=== PATIENT | female | born 1950 | race Caucasian/White ===

== ENCOUNTER → 2016-05-14 | Outpatient (CLI) | payer OTHER ==
[2016-05-14 12:21] LABS: ALT/SGPT 28 U/L (12-78); BLOOD UREA NITROGEN 15 mg/dl (7-18); BUN/CREATININE RATIO 18.8 (10-20); CALCIUM 8.9 mg/dl (8.5-10.1); CARBON DIOXIDE 32 mmol/L (21-32); CHLORIDE 102 mmol/L (98-107); CREATININE 0.82 mg/dl (0.60-1.20); GLUCOSE 90 mg/dl (70-99); POTASSIUM 4.2 mmol/L (3.5-5.1); SODIUM 138 mmol/L (136-145)
[2016-05-14 12:32] LABS: CHOLESTEROL 219 mg/dl (0-200); CHOLESTEROL/HDL RATIO 2.7; HDL CHOLESTEROL 81 mg/dl; LDL CHOLESTEROL CALCULATED 124 mg/dl; TRIGLYCERIDES 69 mg/dl (0-150); VERY LOW DENSITY LIPOPROT CALC 14 mg/dl
== END | disposition home or self-care (01) ==
LOC: C.LAB1850 10:25
PROVIDERS: ATTEND Family Medicine
DX: E78.5 Hyperlipidemia, unspecified (principal); E03.9 Hypothyroidism, unspecified; Z11.59 Encounter for screening for other viral diseases

== ENCOUNTER → 2016-11-15 | Outpatient (CLI) | payer OTHER | END | disposition home or self-care (01) | LOC: C.PAPS 14:07 | PROVIDERS: ATTEND Physician Assistant | DX: Z12.4 Encounter for screening for malignant neoplasm of cervix (principal); R87.619 Unspecified abnormal cytological findings in specimens from cervix uteri; Z11.51 Encounter for screening for human papillomavirus (HPV); Z78.0 Asymptomatic menopausal state ==

== ENCOUNTER → 2016-12-24 | Outpatient (CLI) | payer OTHER ==
--- NOTE | 2016-12-27 15:02 | MAMMOGRAPHY REPORT ---
BILATERAL DIGITAL SCREENING MAMMOGRAM TOMOSYNTHESIS WITH CAD: 12/24/2016 CLINICAL HISTORY: Routine screening. Patient has no complaints. TECHNIQUE: Breast tomosynthesis in addition to standard 2D mammography was performed. Current study was also evaluated with a Computer Aided Detection (CAD) system. COMPARISON: Comparison is made to exams dated: 01/27/2016 mammogram, 03/14/2014 mammogram - [facility], 11/18/2012 mammogram, 11/16/2011 mammogram, and 10/20/2010 mammogram. BREAST COMPOSITION: There are scattered areas of fibroglandular density in both breasts. FINDINGS: No suspicious masses, calcifications, or areas of architectural distortion are noted in ei ther breast. There has been no significant interval change compared to prior exams. IMPRESSION: ACR BI-RADS CATEGORY 1: NEGATIVE There is no mammographic evidence of malignancy. A 1 year screening mammogram is recommended. The pa tient will receive written notification of the results. Approximately 10% of breast cancers are not detected with mammography. A negative mammographic report should not delay biopsy if a clinically suggestive mass is present. Princess Lopez M.D. /:12/24/2016 15:28:01 Supervisor Cereal: Ninfa WOMACK)([place]), [facility] letter sent: Normal 1/2 BI-RADS Code: ACR BI-RADS Category 1: Negative
== END | disposition home or self-care (01) ==
LOC: C.MAMM 14:11
PROVIDERS: ATTEND Obstetrics & Gynecology
DX: Z12.31 Encounter for screening mammogram for malignant neoplasm of breast (principal)

== ENCOUNTER → 2017-02-01 | Outpatient (CLI) | payer OTHER ==
[2017-02-01 13:40] LABS: BASO % 0.8 %; BASO ABS # 0.04 K/uL (0-0.2); COMPLETE YES; HEMATOCRIT 43.5 % (37-47); IG% 0.2 %; LYMPH % 22.9 %; LYMPH ABS # 1.13 K/uL (1.2-3.4); MEAN CELL VOLUME 98.2 fL (80-100); MEAN CORPUSCULAR HGB CONC 33.6 g/dl (32-36); MEAN PLATELET VOLUME 10.9 fL (7.4-10.4); MONO % 10.5 %; NEUT % 63.6 %; PLATELET COUNT 261 K/uL (130-400); RED BLOOD COUNT 4.43 M/uL (4.2-5.4); WHITE BLOOD COUNT 4.94 K/uL (4.8-10.8)
[2017-02-01 14:01] LABS: CHOLESTEROL/HDL RATIO 3.2; THYROID STIMULATING HORMONE 2.86 uIu/ml (0.300-4.500)
== END | disposition home or self-care (01) ==
LOC: C.LABBC 09:43
PROVIDERS: ATTEND Family Medicine
DX: E78.5 Hyperlipidemia, unspecified (principal); E03.9 Hypothyroidism, unspecified

== ENCOUNTER 2019-11-14 11:04 | Observation (INO) ==
--- NOTE | 2019-11-06 17:15 | Anesthesiology Consultation ---
Date of Service November 06, 2019 Assessment & Plan Chart Review Chart Review: Acceptable Risk for Surgery and Patient NOT seen in Pre Admission Testing Consults Requested none ASA ASA3 Proposed Anesthesia Anesthesia Type: MAC History Surgery Operation Date: 11/14/19 10:10 Proposed Procedures p Colonoscopy Dr. Remigio Flood, Height/Weight Height: 5 ft 3.5 in Weight: 68.039 kg Allergies Allergy/AdvReac Type Severity Reaction Status Date / Time No Known Allergies Allergy Verified 11/06/19 13:30 Medications Home Medications Medication Instructions Recorded Confirmed Last Taken clobetasol 0.05 % topical ointment See Rx Instructions TOPICAL 03/22/19 11/06/19 Unknown .COMPLEX PRN #45 gm conjugated estrogens 0.625 mg/gram 0.3125 mg PV 2XWK #90 gm 03/27/19 11/06/19 Unknown vaginal cream alprazolam 0.25 - 0.5 mg PO DAILY PRN 11/06/19 11/06/19 Unknown levothyroxine 50 mcg PO QAM 11/06/19 11/06/19 Unknown naproxen sodium [Aleve] 440 mg PO BID 11/06/19 11/06/19 Unknown simvastatin 40 mg PO HS 11/06/19 11/06/19 Unknown sodium,potassium,mag sulfates 17.5 177 ml PO .COMPLEX #354 ml 11/06/19 Unknown gram-3.13 gram-1.6 gram oral soln Past Medical History Medical History Anxiety Hyperlipidemia Hypothyroidism Osteoarthritis Exercise / Class Metabolic Activity III < 4 Walking/Shop/Light housework Past Family History Family History Grandmother Breast cancer Father Myocardial infarction Emphysema/COPD Mother Liver cancer Type C viral hepatitis Sister Thyroid disease Ovarian cancer Hemochromatosis Dane-Danlos disease Denies family history of Prostate cancer Colorectal cancer Past Surgical History Surgical History History of partial knee replacement right History of tonsillectomy History of tubal ligation History of wisdom tooth extraction Past Anesthesia History No Hx of Anesthesia Complications and No Family Hx of Anesthesia Complications History of PONV No Hx of PONV and No Hx of Motion Sickness Social History Smoking Status: Never smoker Do You Dip or Chew Tobacco: No Hx Alcohol Use: Yes Alcohol type: wine alcohol intake frequency: holidays/special occasions only Hx Substance Use: No substance use type: does not use
[2019-11-14] MEDS ORDERED: METOPROLOL TARTRATE 1 MG/ML VIAL IV ONE (12:08)
--- NOTE | 2019-11-14 12:20 | History & Physical Report ---
Date of Service November 14, 2019 Assessment & Plan (1) Colon cancer screening: Proceed with colonoscopy History of Present Illness Chief Complaint: Screening Primary Care Provider: Christina Ozuna MD 69 yo CF who presents for screening colonoscopy. Allergies Allergy/AdvReac Type Severity Reaction Status Date / Time No Known Allergies Allergy Verified 11/14/19 11:15 Home Medications Home Medications Medication Instructions Recorded Confirmed Type clobetasol 0.05 % topical ointment See Rx Instructions TOPICAL 03/22/19 11/14/19 Rx .COMPLEX PRN #45 gm conjugated estrogens 0.625 mg/gram 0.3125 mg PV 2XWK #90 gm 03/27/19 11/14/19 Rx vaginal cream alprazolam 0.25 - 0.5 mg PO DAILY PRN 11/06/19 11/14/19 History levothyroxine 50 mcg PO QAM 11/06/19 11/14/19 History naproxen sodium [Aleve] 440 mg PO BID 11/06/19 11/14/19 History simvastatin 40 mg PO HS 11/06/19 11/14/19 History sodium,potassium,mag sulfates 17.5 177 ml PO .COMPLEX #354 ml 11/06/19 Rx gram-3.13 gram-1.6 gram oral soln Past Med/Surg History Medical History Anxiety Hyperlipidemia Hypothyroidism Osteoarthritis Surgical History History of partial knee replacement right History of tonsillectomy History of tubal ligation History of wisdom tooth extraction Family History Grandmother Breast cancer Father Myocardial infarction Emphysema/COPD Mother Liver cancer Type C viral hepatitis Sister Thyroid disease Ovarian cancer Hemochromatosis Dane-Danlos disease Denies family history of Prostate cancer Colorectal cancer Social History Smoking Status: Never smoker Second Hand Exposure: No; Do You Dip or Chew Tobacco: No; Tobacco Cessation Education Requested by Patient: No Hx Alcohol Use: Yes Alcohol type: wine Hx Substance Use: No Preferred Language: Icelandic Communication Ability: Effective Visual Impairment: No Limitations Hearing Ability: Normal Housecleaner Required: No Beliefs That Will Affect Care: None marital status: Current Living Situation: Spouse current occupational status: retired Other Information That Helps Us Care for You: No Feels Safe at Home: Yes Safety Concerns: Feels Safe At This Time Childhood Exposure to Second-Hand Smoke: Yes Dental Care, Regularly: Yes Physical Activity Frequency: 5-6 Times per Week Seatbelt Use: always Sunscreen Use: Yes Assistive Devices: Glasses Physical Exam Constitutional: WD/WN, vitals as above Respiratory: normal respiratory effort, lungs clear to auscultation Cardiovascular: RRR, no murmur, no edema Gastrointestinal (Abdomen): normal bowel sounds, soft, nontender, no hepatosplenomegaly Results & Data ([facility]) Vital Signs (Past 12 Hours) Vital Signs Temp Pulse Resp BP Pulse Ox 11/14/19 12:06 128 H 16 136/90 96 11/14/19 11:37 36.6 C 132 H 16 156/92 H 95 Coding Level of Care Code None Diagnoses Colon cancer screening Z12.11
[2019-11-14] MEDS ORDERED: dilTIAZem HCl 5 MG/ML 5 ML VIAL IV STA (12:49)
[2019-11-14] MEDS ORDERED: dilTIAZem HCL 125 MG in DEXTROSE 5% 100 ML IV SCH (12:49)
[2019-11-14] MEDS ORDERED: STAT IV Infusion **Titration per Protocol STA (12:49)
[2019-11-14 13:53] LABS: Basophils # (auto) 0.02 K/uL (0-0.2); Basophils % (auto) 0.3 %; Eosinophils # (auto) 0.05 K/uL (0-0.5); Eosinophils % (auto) 0.7 %; Hematocrit (blood only) 43.9 % (37-47); Hemoglobin 14.7 g/dL (12.0-16.0); Immature Granulocytes # (auto) 0.01 K/uL (0.00-0.02); Immature Granulocytes % (auto) 0.1 %; Lymphocytes # (auto) 1.03 K/uL (1.2-3.4); Lymphocytes % (auto) 13.8 %; Mean Corpuscular Hemoglobin 31.7 pg (25-34); Mean Corpuscular Hgb Conc 33.5 g/dL (32-36); Mean Corpuscular Volume 94.8 fL (80-100); Mean Platelet Volume 10.9 fL (7.4-10.4); Monocytes # (auto) 0.48 K/uL (0.11-0.59); Monocytes % (auto) 6.5 %; Neutrophils # (auto) 5.85 K/uL (1.4-6.5); Neutrophils % (auto) 78.6 %; Platelet Count 241 K/uL (130-400); RDW Standard Deviation 45.2 fL (36.4-46.3); Red Blood Count 4.63 M/uL (4.2-5.4); White Blood Count 7.44 K/uL (4.8-10.8)
[2019-11-14] MEDS ORDERED: PREMARIN VAG CRM 14 APPLN/30 GM TUBE PV SCH (13:56)
[2019-11-14] MEDS ORDERED: ACETAMINOPHEN 325 MG TAB PO PRN (13:56)
[2019-11-14] MEDS ORDERED: ONDANSETRON INJ 2 MG/ML 2 ML VIAL IV PRN (13:56)
[2019-11-14] MEDS ORDERED: ALPRAZolam 0.5 MG TABLET PO PRN (13:56)
[2019-11-14 13:57] LABS: BUN Creatinine Ratio 11.4 (10-20); Blood Urea Nitrogen 8 mg/dl (7-18); Calcium 9.1 mg/dl (8.5-10.1); Carbon Dioxide 25 mmol/L (21-32); Chloride 112 mmol/L (98-107); Creatinine Clr Calc Pharmacy 74.9 ml/min; Est GFR (African American) 104.9; Est GFR (Non-African American) 90.5; Glucose 92 mg/dl (70-99); Magnesium 1.9 mg/dl (1.8-2.4); Sodium 144 mmol/L (136-145)
[2019-11-14 14:01] LABS: Troponin I < 0.015 ng/ml (0-0.045)
--- NOTE | 2019-11-14 14:07 | History & Physical Report ---
Date of Service November 14, 2019 Assessment & Plan (1) Atrial fibrillation with RVR: First documented episode of such. Asymptomatic in the pre-op area despite rapid rates. May have had PAF in the past - has had sustained palpitations several years ago and several weeks ago. CHADs-VASC score is 2. Should consider anticoagulation once colonoscopy is complete. Plan - * admit to PCU/tele * start cardizem infusion at 5mg/hr * check K, Mag levels; check troponin * echo to eval atrial size, valvular function, etc * recent TSH wnl; defer on repeat testing * hopefully she spontaneously converts * agree that rate control is needed prior to proceeding with colonoscopy * will speak with GI about potentially having c-scope in am if she converts OR, even if a.fib persists, rates are controlled (2) Hypothyroidism: TSH just a few days ago was normal. Continue synthroid. (3) Hyperlipidemia: Continue simvastatin. LDL was 112 a few days ago on lipid profile. (4) Anxiety: Xanax prn. (5) Colon cancer screening: Was to have colonoscopy with Dr Flood today. Will discuss the patient's care with Dr Flood at his earliest convenience. History of Present Illness Chief Complaint: rapid a.fib Primary Care Provider: Christina Ozuna MD Very pleasant 69yo female with history of hypothyroidism and hyperlipidemia who presented today for routine screening colonoscopy with Dr Flood. During check-in she was noted to have a rapid heart rate into the 130s. EKG was obtained and this appeared to show a.fib with RVR (my reading). Anesthesia consulted the hospitalist team for evaluation. Prior to my arrival the patient was given 5mg of IV lopressor. Despite such there was no significant change in her heart rate. Patient reports that approximately 2 years ago she had been suffering palpitations. She underwent what sounds like a 30-day event monitor which was unrevealing of any dysrhythmia. About 2-3 weeks ago the patient noted palpitations and on her fit-bit her pulse was in the 130s. The palpitations lasted about 30 minutes then resolved. Her heart rates normalized as well. Today she denies ANY palpitations, dyspnea, chest pain or other cardiopulmonary symptoms. She walks her dog every day for 30 minutes without any limitation. She has no prior formal diagnosis of a.fib. She denies any h/o CHF, DM, TIA or stroke, or HTN. Denies any recent falls, melena, hematuria, or BRBPR. Allergies Allergy/AdvReac Type Severity Reaction Status Date / Time No Known Allergies Allergy Verified 11/14/19 11:15 Home Medications Home Medications Medication Instructions Recorded Confirmed Type clobetasol 0.05 % topical ointment See Rx Instructions TOPICAL 03/22/19 11/14/19 Rx .COMPLEX PRN #45 gm conjugated estrogens 0.625 mg/gram 0.3125 mg PV 2XWK #90 gm 03/27/19 11/14/19 Rx vaginal cream alprazolam 0.25 - 0.5 mg PO DAILY PRN 11/06/19 11/14/19 History levothyroxine 50 mcg PO QAM 11/06/19 11/14/19 History naproxen sodium [Aleve] 440 mg PO BID 11/06/19 11/14/19 History simvastatin 40 mg PO HS 11/06/19 11/14/19 History sodium,potassium,mag sulfates 17.5 177 ml PO .COMPLEX #354 ml 11/06/19 Rx gram-3.13 gram-1.6 gram oral soln Past Med/Surg History Medical History Anxiety Hyperlipidemia Hypothyroidism Osteoarthritis Surgical History History of partial knee replacement right History of tonsillectomy History of tubal ligation History of wisdom tooth extraction Family History Grandmother Breast cancer Father Myocardial infarction Emphysema/COPD Mother Liver cancer Type C viral hepatitis Sister Thyroid disease Ovarian cancer Hemochromatosis Dane-Danlos disease Denies family history of Prostate cancer Colorectal cancer Social History (Updated 11/14/19 @ 14:01 by Wiley Will) Smoking Status: Never smoker Second Hand Exposure: No; Do You Dip or Chew Tobacco: No; Tobacco Cessation Education Requested by Patient: No Hx Alcohol Use: Yes Alcohol type: wine Alcohol Intake Frequency: 2-3 x/Week Hx Substance Use: No Preferred Language: Venezuelan Communication Ability: Effective Visual Impairment: No Limitations Hearing Ability: Normal Artificial Breast Fabricator Required: No Beliefs That Will Affect Care: None marital status: Current Living Situation: Spouse Current Living Situation Comment: lives with in [employer] current occupational status: 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; 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 How many Children do You have: 3 Other Information That Helps Us Care for You: No Feels Safe at Home: Yes Safety Concerns: Feels Safe At This Time Childhood Exposure to Second-Hand Smoke: Yes Dental Care, Regularly: Yes Physical Activity Frequency: 5-6 Times per Week Seatbelt Use: always Sunscreen Use: Yes Assistive Devices: Glasses Review of Systems Constitutional: no fever, no chills, no fatigue, no anorexia and no weight loss Eyes: no worsening vision Ear, Nose, Mouth, Throat: no nasal congestion and no sore throat no loss of taste or smell Respiratory: no cough, no dyspnea and no dyspnea on exertion Cardiovascular: no chest pain, no dyspnea on exertion, no palpitations and no edema Gastrointestinal: no abdominal pain, no nausea, no vomiting, no blood in stools and no melena Genitourinary: no dysuria and no hematuria Musculoskeletal: no back pain and no joint pain Integumentary: no rash Neurologic: no loss of sensation Psychiatric: + anxiety Endocrine: denies diabetes Hematologic / Lymphatic: no easy bruising Physical Exam Constitutional: well developed and well nourished; no acute distress and no altered mental status Eyes: PERRL ENMT: external ear and nose normal, oropharynx normal Neck: trachea midline, no thyromegaly Respiratory: normal respiratory effort, lungs clear to auscultation Cardiovascular: Rate/Rhythm: + tachycardic and + irregularly irregular Heart Sounds: normal S1 and normal S2; no murmur Vessels: posterior tibial pulses present and dorsalis pedis pulses present; no JVD Extremities: no edema Gastrointestinal (Abdomen): normal bowel sounds, soft, nontender, no hepatosplenomegaly Musculoskeletal: no cyanosis or clubbing, extremities motor strength 5/5 Skin: no rashes, warm and dry Neurologic: deep tendon reflexes 2+ bilaterally and moves all extremities; no focal motor deficits Psychiatric: A+Ox3, euthymic affect Lymphatic: no cervical lymphadenopathy Results & Data Results & Data ([facility]) Vital Signs (Past 12 Hours) Vital Signs Temp Pulse Resp BP Pulse Ox 11/14/19 12:06 128 H 16 136/90 96 11/14/19 11:37 36.6 C 132 H 16 156/92 H 95 Laboratory Results Laboratory Results - last 24 hr 11/14/19 11/14/19 13:28 13:28 WBC 7.44 RBC 4.63 Hgb 14.7 Hct 43.9 MCV 94.8 MCH 31.7 MCHC 33.5 RDW Std Deviation 45.2 RDW Coeff of Sim 13.0 Plt Count 241 MPV 10.9 H Immature Gran % (Auto) 0.1 Neut % (Auto) 78.6 Lymph % (Auto) 13.8 Lucas % (Auto) 6.5 Eos % (Auto) 0.7 Baso % (Auto) 0.3 Neut # (Auto) 5.85 Lymph # (Auto) 1.03 L Lucas # (Auto) 0.48 Eos # (Auto) 0.05 Baso # (Auto) 0.02 Immature Gran # (Auto) 0.01 Sodium 144 Potassium 4.0 Chloride 112 H Carbon Dioxide 25 Anion Gap 7.0 BUN 8 Creatinine 0.68 Est Cr Clr Drug Dosing 74.9 Est GFR ( Amer) 104.9 Est GFR (Non-Af Amer) 90.5 BUN/Creatinine Ratio 11.4 Glucose 92 Calcium 9.1 Magnesium 1.9 Troponin I < 0.015 recent TSH wnl recent COVID-19 test wnl Code Status & VTE Plan VTE Prophylaxis Plan VTE Prophylaxis will be ordered: Yes PG Care Time/CCT Total # of Minutes Spent Total Time Spent with Patient: Total time spent is greater than 50% in coordination of care (as documented) at patient's floor/unit and/or counseling patient: Coding Level of Care Code 48199 Initial Inpt Care Lvl 2 Diagnoses Atrial fibrillation with RVR I48.91 Hypothyroidism E03.9 Hypothyroidism type: acquired Hyperlipidemia E78.2 Hyperlipidemia type: mixed hyperlipidemia Anxiety F41.9 Colon cancer screening Z12.11 (1) Hypothyroidism Hypothyroidism type: acquired Qualified Code(s): E03.9 - Hypothyroidism, unspecified (2) Hyperlipidemia Hyperlipidemia type: mixed hyperlipidemia Qualified Code(s): E78.2 - Mixed hyperlipidemia
--- NOTE | 2019-11-14 14:31 | XCELERA ---
[id number]
[2019-11-14] MEDS ORDERED: D5W AND 1/2NSS + 20MEQ KCL 20 MEQ/1,000 ML BAG IV SCH (16:00)
[2019-11-14] MEDS: METOPROLOL TARTRATE 25 MG TAB PO SCH ×2 (16:29→21:18)
[2019-11-14] MEDS ORDERED: SIMVASTATIN 40 MG TAB PO SCH (21:00)
[2019-11-14] MEDS ORDERED: diphenhydrAMINE Capsule 25 MG CAP PO PRN (21:33)
--- NOTE | 2019-11-15 06:04 | Electrocardiogram Report ---
Test Reason : Blood Pressure : / mmHG Vent. Rate : 130 BPM Atrial Rate : 000 BPM P-R Int : 000 ms QRS Dur : 072 ms QT Int : 326 ms P-R-T Axes : 000 044 002 degrees QTc Int : 479 ms Atrial fibrillation with rapid ventricular response Septal infarct , age undetermined Nonspecific ST and T wave abnormality Abnormal ECG No previous ECGs available Reconfirmed by Mitchell Baxter ([id number]) on 11/15/2019 6:13:35 AM Referred By: Christina Ozuna Confirmed By:Mitchell Baxter
--- NOTE | 2019-11-15 06:15 | Electrocardiogram Report ---
Test Reason : Blood Pressure : / mmHG Vent. Rate : 065 BPM Atrial Rate : 065 BPM P-R Int : 148 ms QRS Dur : 070 ms QT Int : 446 ms P-R-T Axes : 058 -30 056 degrees QTc Int : 463 ms Normal sinus rhythm Left axis deviation Abnormal ECG When compared with ECG of 14-NOV-2019 11:30, Sinus rhythm has replaced Atrial fibrillation HR has decreased by 65 bpm Confirmed by Mitchell Baxter ([id number]) on 11/15/2019 6:15:21 AM Referred By: Christina Ozuna Confirmed By:Mitchell Baxter
[2019-11-15] MEDS ORDERED: LEVOTHYROXINE SODIUM 50 MCG TABLET PO SCH (06:30)
[2019-11-15] MEDS: METOPROLOL TARTRATE 25 MG TAB PO SCH (09:04)
[2019-11-15 09:10] LABS: BUN Creatinine Ratio 9.7 (10-20); Calcium 9.5 mg/dl (8.5-10.1); Est GFR (African American) 95.6; Est GFR (Non-African American) 82.5; Potassium 3.5 mmol/L (3.5-5.1)
--- NOTE | 2019-11-15 10:42 | Discharge Summary ---
Date of Service date of admission - November 14, 2019 date of discharge - November 15, 2019 Admission HPI Per Admitting Provider Very pleasant 69yo female with history of hypothyroidism and hyperlipidemia who presented today for routine screening colonoscopy with Dr Flood. During check-in she was noted to have a rapid heart rate into the 130s. EKG was obtained and this appeared to show a.fib with RVR (my reading). Anesthesia consulted the hospitalist team for evaluation. Prior to my arrival the patient was given 5mg of IV lopressor. Despite such there was no significant change in her heart rate. Patient reports that approximately 2 years ago she had been suffering palpita tions. She underwent what sounds like a 30-day event monitor which was unrevealing of any dysrhythmia. About 2-3 weeks ago the patient noted palpitations and on her fit-bit her pulse was in the 130s. The palpitations lasted about 30 minutes then resolved. Her heart rates normalized as well. Today she denies ANY palpitations, dyspnea, chest pain or other cardiopulmonary symptoms. She walks her dog every day for 30 minutes without any limitation. She has no prior formal diagnosis of a.fib. She denies any h/o CHF, DM, TIA or stroke, or HTN. Denies any recent falls, melena, hematuria, or BRBPR. Principal Diagnosis rapid a.fib / paroxysmal a.fib Discharge Exam Constitutional well developed and well nourished; no acute distress and no altered mental status ENMT external ear and nose normal, oropharynx normal Respiratory normal respiratory effort, lungs clear to auscultation Cardiovascular Rate/Rhythm: regular rhythm and + bradycardic Heart Sounds: normal S1 and normal S2; no murmur Vessels: posterior tibial pulses present and dorsalis pedis pulses present; no JVD Extremities: no edema Gastrointestinal (Abdomen) normal bowel sounds, soft, nontender, no hepatosplenomegaly Psychiatric A+Ox3, euthymic affect Discharge Data Allergies Allergy/AdvReac Type Severity Reaction Status Date / Time No Known Allergies Allergy Verified 11/14/19 11:15 Procedures Performed echocardiogram: * EF 60-65% * normal diastolic function * mild mitral regurgitation * normal LA, RA * other valves normal * no LV wall motion abnormalities Hospital Course (1) Atrial fibrillation with RVR: First documented episode of PAF. Patient had no cardiopulmonary symptoms when she presented in rapid a.fib at the time of her elective, outpatient colonoscopy. She never had ischemic symptoms. She likely has had PAF in the past as she reports sustained tachycardia and palpitations on several occasions over the years. The patient's colonoscopy was canceled due to the rapid a.fib. Upon admission the patient spontaneously converted back to NSR. She remained in NSR for all of her brief stay except for an additional run of PAF lasting ~3 minutes on the AM of 11/15/19. She spontaneously converted back to NSR following this brief episode as well. She was initiated on metoprolol 12.5mg BID. Echocardiogram was normal. K/Mag levels were normal. TSH was normal about 1 week prior to admission. CHADs-VASC score is 2. Thus, she was strongly encouraged to take systemic anticoagulation. Eliquis 5mg BID was prescribed at discharge. (2) Hypothyroidism: TSH 11/08/19 was normal. Continue synthroid. (3) Hyperlipidemia: Continue simvastatin. LDL was 112 on 11/08/19. (4) Anxiety: Xanax prn. (5) Colon cancer screening: Was to have colonoscopy with Dr Sunil Flood when the rapid a.fib was found at time of check-in for the procedure. The colonoscopy on 11/14/19 was canceled due to the rapid a.fib. The patient was rescheduled for the colonoscopy on the afternoon of 11/15/19. On the AM of 11/14, however, the patient voiced that she didn't want to wait any further for the colonoscopy and requested discharge. She was counseled that she would have to re-prep for a future colonoscopy, coordination would have to take place re: her anticoagulation, etc. Despite all of this she still wanted to discharge home rather than wait for the procedure. She was asked to contact Dr Flood's office to reschedule the colonoscopy. (6) Osteoarthritis of knee, unspecified: The patient reported she was going to have knee replacement at the end of November in [place]. A copy of her echo images was given to the patient. Additionally I asked her to inform her orthopedic surgeon that she had PAF this admission and to inform the surgeon that she will now be taking eliquis. She voiced understanding. Total Time Total Time Spent Total Time Spent (In Minutes): 40 Total Time Includes: Examination of the Patient, Discharge Planning and Medication Reconciliation Discharge Plan Discharge Items Patient Disposition: Home - Self-Care Reason For Visit: rapid a.fib Discharge Diagnosis: Atrial fibrillation Activity: Resume your previous activity Non-emergency contact: Primary Care Provider, Surgeon and Luncheonette Operator Call non-emergency contact if: you have any medication questions, your symptoms worsen and you have a fever Follow-up/Referrals: Sunil Flood DO [Physician] - 01/16/20 (please call Dr Flood to reschedule colonoscopy LAKSHMI DEEJAY WILL CALL YOU THE DAY BEFORE FOR A TIME FOR THIS APT.) Christina Ozuna MD [Primary Care Provider] - 11/22/19 10:20 am (see Dr Ozuna within 1 week ) Diet: Heart Healthy Addtl Attending Provider Instructions: You presented on 11/14/19 for routine colonoscopy with Dr Flood. During check-in vital signs you were noted to have a rapid pulse (heart rate) in the 130s. An EKG was obtained showing a heart rhythm called "atrial fibrillation" (a.fib for short). It is very probable that your past episodes of palpitations have been a.fib as well. The colonoscopy was canceled and you were admitted for the a.fib. Shortly after your heart converted back to normal rhythm. Your echocardiogram (heart ultrasound) was normal. Your recent thyroid level was normal. On the morning of 11/15/19 you had a 3-minute episode of a.fib. You spontaneously went back to normal rhythm. It is likely that you are having frequent runs of a.fib outside the hospital. Fortunately you are having little to no symptoms from the a.fib. Recommendations: 1. metoprolol 12.5mg twice daily. This medication will hopefully help slow your heart rate if you enter a.fib again. 2. eliquis blood thinner 5mg twice daily. This is to help prevent blood clot formation in your heart thereby reducing your chances of stroke from the a.fib. 3. STOP your naproxen as this interacts with eliquis. Do not take motrin or ibuprofen. Tylenol IS OK. 4. LIMIT or stop alcohol use as alcohol and blood thinners do interact. 5. please let your surgeon in [place] know that you have been diagnosed with a.fib and that you are now taking a blood thinner. 6. please obtain a flu shot this year, wear a mask when you leave your home, and continue to practice social distancing to prevent annia the Coronavirus/COVID-19. Blood thinner (anticoagulant) instructions: Your condition is typically treated with an anticoagulant. Anticoagulants will thin your blood to help prevent blood clots. Your blood thinner is ELIQUIS. * You should take her medication exactly as directed. * Never skip a dose. * Never take a double dose. If you miss a dose, take it as soon as you remember. Call your Primary Care doctor if you experience any of the following: * Chest Pain * Sudden Shortness of Breath * Rapid or pounding heart beat * Fainting * Dizziness * Cough with blood or bloody sputum * Sweating more than normal * Bruises * Heavy or uncontrolled bleeding * Blood in your urine, stool or vomit * Black or tarry stools * Severe nosebleeds Follow-up - * see your family doctor within 1 week * call Dr Flood to reschedule your colonoscopy * see your orthopedic surgeon in [place] as scheduled Return to [facility] if - * you have fevers over 100 degrees * you have shortness of breath or chest pain * you have rapid heart beating/palpitations that do not go away after 20-30 minutes * you have severe bleeding from any location * any other concerns Pending Studies at Discharge: No Stand-Alone Forms: My [facility], Smoking Cessation Medications and DC Order Prescriptions: New metoprolol tartrate 25 mg Tablet 12.5 mg PO BID Qty: 60 RF: 2 Eliquis 5 mg tablet 5 mg PO BID Qty: 60 RF: 2 Continued conjugated estrogens 0.625 mg/gram cream 0.3125 mg PV 2XWK Qty: 90 RF: 3 clobetasol 0.05 % ointment See Rx Instructions topical .COMPLEX PRN (Reason: itching) Qty: 45 RF: 1 simvastatin 40 mg tablet 40 mg PO HS RF: 0 alprazolam 0.5 mg tablet 0.25 - 0.5 mg PO DAILY PRN (Reason: Anxiety) RF: 0 levothyroxine 50 mcg tablet 50 mcg PO QAM RF: 0 Discontinued Suprep Bowel Prep Kit 17.5-3.13-1.6 gram recon soln 177 ml PO .COMPLEX Qty: 354 RF: 0 naproxen sodium [Aleve] 220 mg Tablet 440 mg PO BID RF: 0 Discharge Orders: Discharge Order (Routine); Ordered 11/15/19 Ordered By: Wiley Casey/Other Patient Handouts: Stroke Prevent Live W Atrial Fib, Understanding Atrial Fibrillation Admission Data Admit Date/Time: 11/14/19 12:49 Attending Provider: Wiley Will Admit Provider: Wiley Will Primary Care Provider: Christina Ozuna Other Interventions: Discharge Summary Assessment (RN) Last Done: 11/15/19 11:08 Coding Level of Care Code 00810 OBS Care - Discharge Diagnoses Atrial fibrillation with RVR I48.91 Hypothyroidism E03.9 Hypothyroidism type: acquired Hyperlipidemia E78.2 Hyperlipidemia type: mixed hyperlipidemia Anxiety F41.9 Colon cancer screening Z12.11 Osteoarthritis of knee, unspecified M17.9
--- NOTE | 2019-11-15 10:42 | Communication Note ---
Date of Service: November 15, 2019 By CMS guidelines, a determination that the admission or continued stay is not medically necessary has been made by a member of the UR committee and a phy sician for this hospital stay, therefore a Code 44 will be completed and the Inpatient admission will be changed to outpatient. Wiley Will MD
== END 2019-11-15 11:34 | disposition home or self-care (01) | DRG 310 ==
LOC: ENDO 11:04 → INTOOBSV 12:49 → 2S 12:49

== ENCOUNTER 2021-07-25 13:16 | Inpatient (IN) ==
[2021-07-25] MEDS ORDERED: SODIUM CHLORIDE 0.9% 1000ML 1,000 ML IV ONE (14:35)
[2021-07-25 14:58] LABS: Basophils # (auto) 0.06 K/uL (0-0.2); Basophils % (auto) 0.4 %; Eosinophils # (auto) 0.06 K/uL (0-0.5); Eosinophils % (auto) 0.4 %; Hematocrit (blood only) 47.4 % (37-47); Hemoglobin 15.9 g/dL (12.0-16.0); Immature Granulocytes # (auto) 0.04 K/uL (0.00-0.02); Immature Granulocytes % (auto) 0.3 %; Lymphocytes # (auto) 2.12 K/uL (1.2-3.4); Lymphocytes % (auto) 14.6 %; Mean Corpuscular Hemoglobin 33.2 pg (25-34); Mean Corpuscular Hgb Conc 33.5 g/dL (32-36); Mean Platelet Volume 11.9 fL (7.4-10.4); Monocytes # (auto) 1.18 K/uL (0.11-0.59); Monocytes % (auto) 8.1 %; Neutrophils # (auto) 11.07 K/uL (1.4-6.5); Neutrophils % (auto) 76.2 %; Platelet Count 274 K/uL (130-400); RDW Coefficient of Variation 13.2 % (11.5-14.5); RDW Standard Deviation 47.9 fL (36.4-46.3); Red Blood Count 4.79 M/uL (4.2-5.4); White Blood Count 14.53 K/uL (4.8-10.8)
[2021-07-25 15:20] LABS: Echinocytes 1+
[2021-07-25 15:31] LABS: Alanine Aminotransferase 27 U/L (7-52); Albumin Globulin Ratio 1.4 (0.9-2); Albumin Level 4.6 gm/dl (3.4-5.0); Alkaline Phosphatase 57 U/L (34-104); Anion Gap 11 (3-11); Aspartate Aminotransferase 14 U/L (13-39); BUN Creatinine Ratio 15.1 (10-20); Bilirubin,Total 0.6 mg/dl (0.2-1.0); Blood Urea Nitrogen 13 mg/dl (6-23); C Reactive Protein < 0.50 mg/dl (0-0.5); Calcium 9.8 mg/dl (8.5-10.1); Carbon Dioxide 24 mmol/L (21-32); Chloride 102 mmol/L (98-107); Creatinine Clr Calc Pharmacy 59.2 ml/min; Est GFR (African American) 80.5 ml/min; Est GFR (Non-African American) 69.4 ml/min; Globulin 3.2 gm/dl (2.5-4.0); Glucose 117 mg/dl (70-99(Fasting)); Potassium 3.7 mmol/L (3.5-5.1); Sodium 137 mmol/L (136-145); Total Protein 7.8 gm/dl (6.0-8.3)
--- NOTE | 2021-07-25 15:36 | XRay Report ---
XR chest 1V portable CLINICAL HISTORY: Atypical chest pain TECHNIQUE: Single frontal radiograph of the chest was obtained. Comparison: Comparison is made to chest radiograph 07/24/2021 FINDINGS: No lines and tubes are seen. Cardiomegaly is noted. The lungs are clear. No evidence of pleural effus ion or pneumothorax. IMPRESSION: No acute chest disease. ACT 112: Negative or not required by law. Electronically signed by: Sudeep Lou M.D. 07/25/2021 3:35 PM
[2021-07-25 15:42] LABS: Thyroid Stimulating Hormone 5.271 uIu/ml (0.300-4.500)
[2021-07-25 15:48] LABS: Troponin I High Sensitivity 9.2 pg/ml (0-14)
--- NOTE | 2021-07-25 15:49 | History & Physical Report ---
Date of Service July 25, 2021 Assessment & Plan (1) Rash: Plan: - Has developed 4 days after starting Toprol, with progression across the with sparing of mucosal membranes. Otherwise, no new medications, body washes, detergents. Patient does states she was at a greenhouse carrying several plants in her arms the day after the rash initially started, at which time it was confined to his left elbow. -Analogy at this time, unlikely that this is metoprolol reaction, it does almost seem consistent with a poison francesca rash, especially given her history of carrying multiple plants close to the chest and her arms. There are components of contact dermatitis rash, for instance does not have much rash on legs but does have it in the area where her flip-flops are touching her feet. - Has been on prednisone taper without alleviation. - Start on IV Solu-Medrol 40 mg every 12. - Consult Jay, with allergy/immunology. (2) Atrial fibrillation with rapid ventricular response: Plan: - Patient is currently in A. fib with RVR, HR 80s to 150s. Asymptomatic. - Potassium 3.7, magnesium added onto labs, pending. - TSH 5.271 - Paroxysmal, patient does not always know when she is in A. fib. Sees Evaristo olson with cardiology who recently prescribed her diltiazem daily, with metoprolol to be taken as needed when she notices elevated heart rate. Patient resides in [place], and saw a filter tank tender helper head there earlier this month who prescribed her metoprolol daily, as she was needing to take the metoprolol often. Started taking these daily on , 07/16. Has since stopped since developing a rash 4 days later. - Continue Xarelto, diltiazem. - Echo in October 2019: EF 60 to 65% with mild to moderate mitral regurg. No wall motion abnormalities, no LVH, no diastolic dysfunction. (3) Hyperlipidemia: Plan: - Continue simvastatin 40 mg HS. (4) Hypothyroidism: Plan: - Continue levothyroxine 50 mcg daily. (5) Anxiety: Plan: - Continue alprazolam as needed. Plan: - Admit to PCU. - SCDs, Xarelto for VTE ppx. - Full Code. History of Present Illness Chief Complaint: Progressing rash uknown etiology Primary Care Provider: MD Lizbeth Marsh is a 70 y/io F with PMH afib on Xarelto, HTN, HLD, hypothyroidism, and anxiety who presents to the ED today for evaluation of a progressive rash. Earlier this week, patient developed initially started on left elbow, has since spread to bilateral arms, chest, abdomen and upper lip. She was seen by her PCP on 07/22 and was prescribed a prednisone taper for this. Despite this, she become worse. She now has evidence of it on her bilateral legs, and her lips feel chapped, although she has not noticed any changes to her oral medications. Of note, recently started on metoprolol 4 days prior to this, but has since stopped it because she is concerned this may be causing the rash. Also reports she had been carrying several plants in her arms, right around when the rash started. No new detergents, new body washes. Has never had an allergic reaction like this, no allergies reported. She has no chest pain, palpitations difficulty breathing, difficulty swallowing, fever/chills. In ED, he is in A. fib RVR and her HR fluctuates between 80s-150s, otherwise VS within normal limits and stable. Labs significant for WBC 14.53, ESR and CRP not elevated. Negative serologies for anaplasmosis, Babesia, Lyme disease. Allergies Allergy/AdvReac Type Severity Reaction Status Date / Time No Known Allergies Allergy Verified 07/25/21 16:33 Home Medications Medication Instructions Recorded Confirmed Type rivaroxaban 20 mg tablet (Xarelto) 20 mg PO DAILY #30 tab 03/05/20 07/25/21 Rx clobetasol 0.05 % topical ointment See Rx Instructions TOPICAL 03/27/21 07/25/21 Rx .COMPLEX PRN #45 gm conjugated estrogens 0.625 mg/gram 0.3125 mg PV 2XWK #30 g 03/27/21 07/25/21 Rx vaginal cream levothyroxine 50 mcg tablet 50 mcg PO QAM #90 tab 04/06/21 07/25/21 Rx simvastatin 40 mg tablet 40 mg PO HS #90 tab 04/06/21 07/25/21 Rx calcium 250 mg-D3 400 1 tab PO DAILY tab 05/26/21 07/22/21 History unit-magnesium 40 [id number]-[id number]-[id number]-copper-bartolome tablet alprazolam 0.5 mg tablet 0.25 - 0.5 mg PO DAILY PRN #30 tab 06/09/21 07/25/21 Rx diltiazem HCl 360 mg 360 mg PO DAILY #21 cap 07/24/21 07/25/21 Rx capsule,extended release 24 hr (Cardizem CD) estradiol 1 g VAGINAL .2-3XWK 07/25/21 07/25/21 History Past Med/Surg History Medical History (Updated 07/25/21 @ 16:37 by Chasity Milian PA-C) Anxiety Hyperlipidemia Hypothyroidism Osteoarthritis Paroxysmal A-fib Surgical History History of partial knee replacement right History of tonsillectomy History of tubal ligation History of wisdom tooth extraction Family History Grandmother Breast cancer Father Myocardial infarction Emphysema/COPD Mother Liver cancer Type C viral hepatitis Sister Thyroid disease Ovarian cancer Hemochromatosis Dane-Danlos disease Breast cancer Denies family history of Prostate cancer Colorectal cancer Social History Smoking Status: Never smoker Second Hand Exposure: No; Hx Alcohol Use: Yes Alcohol type: wine Alcohol Intake Frequency: 2-3 x/Week Hx Substance Use: No Preferred Language: Irish Communication Ability: Effective Visual Impairment: No Limitations Hearing Ability: Normal Cdl A Driver Required: No Beliefs That Will Affect Care: None marital status: Current Living Situation: Spouse current occupational status: retired 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; 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 How many Children do You have: 3 Feels Safe at Home: Yes Childhood Exposure to Second-Hand Smoke: Yes caffeine: Yes during the past year weight has: remained stable Dental Care, Regularly: Yes Physical Activity Frequency: 5-6 Times per Week Seatbelt Use: always Sunscreen Use: Yes Assistive Devices: Glasses Review of Systems Review of Systems: Constitutional: No fever/chills, weakness, fatigue, myalgias, anorexia, night sweats Eyes: No diplopia, no worsening or blurred vision ENT: normal hearing, no trouble swallowing Respiratory: No cough, sputum, dyspnea at rest or on exertion Cardiovascular: No chest pain, tightness or palpitations Abdomen: No pain, nausea, vomiting, diarrhea or constipation : Denies dysuria, hematuria, increased urgency/frequency, urinary retention Musculoskeletal: No joint pain, calf pain, swelling Neurologic: No weakness, numbness/tingling, or balance problems Psychiatric: No anxiety or depression Skin: red itchy rash that started around left elbow 6 days ago, has since spread along entire left arm, across chest, abdomen, right arm, upper lip, and b/l legs/feet Physical Exam Physical Exam: General: awake, alert, no apparent distress Head: Normocephalic, atraumatic ENT: PERRL, EOMI, no pharyngeal exudate, mucous membranes moist Chest: Clear to auscultation, on room air, no adventitious breath sounds Cardiac: irregularly irregular rhythm; no murmur, no JVD, normal peripheral pulses, good capillary refill Abdominal: NABS x 4 quadrants, soft, nontender to palpation, no rebound, guarding or tenderness Extremities: Normal inspection, no peripheral edema or erythema, calfs nontender to palpation Psych: Normal mood and affect Neuro: AAO x 3, strength intact bilaterally and rated 5/5, no motor deficits, speech is clear, no peripheral sensory deficits Skin: blanching, raised, erythematous rash along b/l arms, chest, abdomen, and upper lip; scattered petechiae on b/l legs Results & Data Results & Data ([facility]) Vital Signs (Past 12 Hours) Vital Signs Temp Pulse Pulse Resp BP BP Pulse Ox 07/25/21 15:21 98 H 18 132/88 95 07/25/21 14:39 98 07/25/21 13:34 104 H 21 132/88 96 07/25/21 13:22 36.6 C 119 H 18 140/69 97 Laboratory Results Abnormal lab results 07/25/21 07/25/21 07/25/21 Range/Units 13:35 13:35 13:35 WBC 14.53 H (4.8-10.8) K/uL Hct 47.4 H (37-47) % RDW Std Deviation 47.9 H (36.4-46.3) fL MPV 11.9 H (7.4-10.4) fL Neut # (Auto) 11.07 H (1.4-6.5) K/uL [place] # (Auto) 1.18 H (0.11-0.59) K/uL Immature Gran # (Auto) 0.04 H (0.00-0.02) K/uL Glucose 117 H (70-99(Fasting)) mg/dl TSH 5.271 H (0.300-4.500) uIu/ml Diagnostic Findings Chest X-Ray 07/25/21 14:36 XR chest 1V portable CLINICAL HISTORY: Atypical chest pain TECHNIQUE: Single frontal radiograph of the chest was obtained. Comparison: Comparison is made to chest radiograph 07/24/2021 FINDINGS: No lines and tubes are seen. Cardiomegaly is noted. The lungs are clear. No evidence of pleural effusion or pneumothorax. IMPRESSION: No acute chest disease. ACT 112: Negative or not required by law. Electronically signed by: Sudeep Lou M.D. 07/25/2021 3:35 PM ECG Additional Comments: Atrial fibrillation with rapid ventricular response Left anterior fascicular block Septal infarct , age undetermined Abnormal ECG When compared with ECG of 24-JUL-2021 13:10, Septal infarct is now Present Nonspecific T wave abnormality no longer evident in Inferior leads. Code Status & VTE Plan Code Status Full Code. Supervising Physician Co-Signing Physician Notes Patient seen and examined with AUDREY, agree with her note above. Patient presents with a raised maculopapular rash, initially starting the left arm but traveled across her chest to her right arm. She has minimal areas affected on her legs but she does have some on her back. Concern was the patient had issues with metoprolol which had been started 4 days prior. On further questioning, patient noted that she was working outdoors in a [place] and was holding a large amount of plants across her chest. Patient does not have systemic symptoms such as fever, chills, shortness of breath, cough, or other issues. The rash is mildly pruritic. She does have sparing of mucous membranes and palms of her hands and soles of her feet. At this time, concern the patient may actually have rhus dermatitis from exposure rather than a drug rash. However, we will discontinue Toprol for now. Start IV Solu-Medrol with a rapid taper down to prednisone. Also okay to use antihistamine in addition to this and Claritin was also ordered. Patient does have atrial fibrillation and does have a rapid heart rate, likely secondary to discontinue Toprol. I do see her Cardizem was recently increased. We will try an IV dose of digoxin 0.25. If heart rate continues to be elevated, can start daily dosing this. Consider cardiology consult. PG Care Time/CCT Total # of Minutes Spent Total Time Spent with Patient: Total time spent is greater than 50% in coordination of care (as documented) at patient's floor/unit and/or counseling patient: Coding Level of Care Code 18439 Initial Inpt Care Lvl 3 Diagnoses Rash R21 Atrial fibrillation with rapid ventricular response I48.91 Hyperlipidemia E78.5 Hypothyroidism E03.9 Anxiety F41.9
[2021-07-25 15:58] LABS: Lyme Ab IgG w/WB Rflx Negative (Negative); Lyme Ab IgM w/WB Rflx Negative (Negative)
[2021-07-25 16:16] LABS: T4 Free Thyroxine 1.03 ng/dl (0.61-1.60)
--- NOTE | 2021-07-25 18:30 | Emergency Department Note ---
Impression & Plan Rash, Paroxysmal atrial fibrillation with RVR, On rivaroxaban therapy ED Provider Note NAME: CANDICE WAGNER AGE: 70 SEX: F ARRIVES VIA: Walk-In INFORMANT: Patient ED PROVIDER(S): Ramón Evans MD CHIEF COMPLAINT: Rash PLAN: Disposition: Admit MEDICAL DECISION MAKING: The patient is a pleasant 70-year-old woman with a past medical history of paro xysmal atrial fibrillation on Xarelto hyperlipidemia, anxiety who presents to the emergency department accompanied by her for evaluation of worsening rash that has been present for the past week and occurs in the setting of being started on diltiazem several weeks ago for atrial fibrillation and then on metoprolol. The patient was seen in the emergency department yesterday for her rash and was noted to have uncontrolled atrial fibrillation. It was recommended the patient be admitted however she preferred to be discharged for outpatient follow-up. She had been started on steroids by her primary care doctor for her rash but this was discontinued in the event it may be contributing to her RVR. Patient reports that she feels as though it may be starting to involve her lips as she has increasing sensation of her lips being chapped. She denies any fevers, chills, cough, congestion, GI or symptoms. On arrival the patient is no acute distress, afebrile with heart rate in atrial fibrillation in the 100s and vital signs otherwise stable. She appears clinically dry. She has a raised non-blanchable macular rash of her BUE, chest, lower abdomen. Mild facial involvement. No overt mucosal involvement. No versicles or bullae. Scant Petechiae of bilateral lower legs. EKG without overt acute ischemia. CXR negative for acute process. WBC 14.5K similar to yesterday and nonspecific and in the setting of the patient recently being on steroids. Her eosinophils are not elevated. Hemoglobin and platelets are within normal limits. Chemistry without metabolic acidosis. Electrolytes and LFTs without significant abnormality. High-sensitivity troponin 9.2, within normal limits. ESR is not elevated at 22. CRP is also not elevated and is undetectable. TSH 5.2 however free T4 within normal limits. Anaplasma and Babesia smear was negative. Anaplasma and Babesia DNA testing have been sent out and are pending. Lyme screen was negative. Covid-19 RNA, NAAT negative. Case was discussed with Dr. Thompson, [place] allergy and immunology. Appreciate consultation. Agrees with plan for admission given the patient's suspected drug rash is complicated by her atrial fibrillation and need for treatment. Agrees that steroids can be deferred at this time until diagnosis is further clarified. He will be available for inpatient team consultation and will be available to see the patient this weekend. The patient and are in agreement with plan for admission. Case was discussed [place], [facility], who will evaluate the patient for admission. Triage Nursing notes reviewed and agree them. Prior medical records reviewed Vital Signs: reviewed and remarkable for tachycardia. Differential diagnosis: Contact dermatitis, viral exanthem, urticaria, allergic reaction, Tao- Maximo syndrome, toxic epidermal necrolysis, erythema multiforme, cellulitis, scabies, HSV, varicella, zoster, eczema, staph scalded skin syndrome, fungal infection, as well as other pathologies. ER treatment provided: See below. Diagnostics interpreted by me: ECG: Atrial fibrillation RVR 106 bpm, no ectopy, no overt ST elevation or depression. Cardiac Monitoring: An order for continuous cardiac monitoring was placed and demonstrated Atrial fibrillation RVR 106 bpm, no ectopy. Laboratory studies: See below Imaging studies: See below Consultation(s): [place] Allergy/immunology, Dr. Thompson. [place] Hospitalist, Dr. Connolly. HPI: The patient is a pleasant 70-year-old woman with a past medical history of paroxysmal atrial fibrillation on Xarelto hyperlipidemia, anxiety who presents to the emergency department accompanied by her for evaluation of worsening rash that has been present for the past week and occurs in the setting of being started on diltiazem several weeks ago for atrial fibrillation and then on metoprolol. The patient was seen in the emergency department yesterday for her rash and was noted to have uncontrolled atrial fibrillation. It was recommended the patient be admitted however she preferred to be discharged for outpatient follow-up. She had been started on steroids by her primary care doctor for her rash but this was discontinued in the event it may be contributing to her RVR. Patient reports that she feels as though it may be starting to involve her lips as she has increasing sensation of her lips being chapped. She denies any fevers, chills, cough, congestion, GI or symptoms. ROS: See above HPI for pertinent positives & negatives. A total of 10 systems reviewed and were otherwise negative. VITALS:See Below PHYSICAL EXAMINATION: GENERAL: Awake, alert, well-appearing, in no distress HENT: Normocephalic, atraumatic. Oropharynx unremarkable. EYES: Normal conjunctiva. Sclera non-icteric. NECK: Supple. No nuchal rigidity. FROM. No JVD. RESPIRATORY: Clear to auscultation. CARDIAC: Regular rate, normal rhythm. Extremities warm and well perfused. Pulses equal. ABDOMEN: Soft, non-distended. No tenderness to palpation. No rebound or guarding. No masses. RECTAL: Deferred. MUSCULOSKELETAL: Chest examination reveals no tenderness. The back is symmetrical on inspection without obvious abnormality. There is no CVA tenderness to palpation. No joint edema. LOWER EXTREMITIES: Calves are equal size bilaterally and non-tender. No edema. No discoloration. NEURO: Normal sensorium. No sensory or motor deficits noted. SKIN: Raised non-blanchable macular rash of her BUE, chest, lower abdomen. Mild facial involvement. No overt mucosal involvement. No versicles or bullae. Scant Petechiae of bilateral lower legs. No jaundice noted. Ramón Evans MD Past Med/Surg History Medical History Anxiety Hyperlipidemia Hypothyroidism Osteoarthritis Paroxysmal A-fib Surgical History History of partial knee replacement right History of tonsillectomy History of tubal ligation History of wisdom tooth extraction Family History Grandmother Breast cancer Father Myocardial infarction Emphysema/COPD Mother Liver cancer Type C viral hepatitis Sister Thyroid disease Ovarian cancer Hemochromatosis Dane-Danlos disease Breast cancer Denies family history of Prostate cancer Colorectal cancer Social History Smoking Status: Never smoker Second Hand Exposure: No; Hx Alcohol Use: Yes Alcohol type: wine Alcohol Intake Frequency: 2-3 x/Week Hx Substance Use: No Preferred Language: Telugu Communication Ability: Effective Visual Impairment: No Limitations Hearing Ability: Normal School Photographs Detailer Required: No Beliefs That Will Affect Care: None marital status: Current Living Situation: Spouse current occupational status: retired 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; 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 How many Children do You have: 3 Other Information That Helps Us Care for You: No Feels Safe at Home: Yes Safety Concerns: Feels Safe At This Time Childhood Exposure to Second-Hand Smoke: Yes caffeine: Yes during the past year weight has: remained stable Dental Care, Regularly: Yes Physical Activity Frequency: 5-6 Times per Week Seatbelt Use: always Sunscreen Use: Yes Assistive Devices: Glasses Allergies Allergies Allergy/AdvReac Type Severity Reaction Status Date / Time No Known Allergies Allergy Verified 07/25/21 16:33 Home Meds Home Medications Medication Instructions Recorded Confirmed calcium 250 mg-D3 400 1 tab PO DAILY tab 05/26/21 07/22/21 unit-magnesium 40 ms-F7-Vd-copper-bartolome tablet estradiol 1 g VAGINAL .2-3XWK 07/25/21 07/25/21 Previous Rx's Medication Instructions Recorded rivaroxaban 20 mg tablet (Xarelto) 20 mg PO DAILY #30 tab 03/05/20 clobetasol 0.05 % topical ointment See Rx Instructions TOPICAL 03/27/21 .COMPLEX PRN #45 gm conjugated estrogens 0.625 mg/gram 0.3125 mg PV 2XWK #30 g 03/27/21 vaginal cream levothyroxine 50 mcg tablet 50 mcg PO QAM #90 tab 04/06/21 simvastatin 40 mg tablet 40 mg PO HS #90 tab 04/06/21 alprazolam 0.5 mg tablet 0.25 - 0.5 mg PO DAILY PRN #30 tab 06/09/21 diltiazem HCl 360 mg 360 mg PO DAILY #21 cap 07/24/21 capsule,extended release 24 hr (Cardizem CD) Results & Data (ED) Vital Signs Vital Signs - 24 hr 07/25/21 13:22 07/25/21 13:34 07/25/21 14:39 Temperature 36.6 C Temperature Source Temporal Artery Scan Pulse Rate 119 H Pulse Rate [Right Finger] 104 H Pulse Rhythm [Right Finger] Regular Pulse Strength [Right Finger] Normal Respiratory Rate 18 21 Respiratory Effort / Characteristics Non-Labored Non-Labored Respiratory Depth Normal Normal Respiratory Pattern Regular Blood Pressure 140/69 Blood Pressure [Right Arm] 132/88 Blood Pressure Mean 92 Blood Pressure Mean [Right Arm] 102 Blood Pressure Position [Right Arm] Sitting Pulse Oximetry 97 96 98 Oxygen Delivery Method Room Air Room Air Sepsis Recent Fever Within 48 Hours No Sepsis New/Unexplained Change in Mental Status No Sepsis Action Taken by Nursing No Action Required Pulse Oximetry Post Tiitration 95 07/25/21 15:21 Temperature Temperature Source Pulse Rate Pulse Rate [Right Finger] 98 H Pulse Rhythm [Right Finger] Pulse Strength [Right Finger] Respiratory Rate 18 Respiratory Effort / Characteristics Non-Labored Respiratory Depth Normal Respiratory Pattern Blood Pressure Blood Pressure [Right Arm] 132/88 Blood Pressure Mean Blood Pressure Mean [Right Arm] 102 Blood Pressure Position [Right Arm] Lying Pulse Oximetry 95 Oxygen Delivery Method Room Air Sepsis Recent Fever Within 48 Hours Sepsis New/Unexplained Change in Mental Status Sepsis Action Taken by Nursing Pulse Oximetry Post Tiitration Laboratory Data Attestation: I reviewed the patient's lab results. Result diagrams: 07/25/21 13:35 07/25/21 13:35 Lab Results 07/25/21 07/25/21 07/25/21 Range/Units 13:35 13:35 13:35 WBC 14.53 H (4.8-10.8) K/uL RBC 4.79 (4.2-5.4) M/uL Hgb 15.9 (12.0-16.0) g/dL Hct 47.4 H (37-47) % MCV 99.0 (80-100) fL MCH 33.2 (25-34) pg MCHC 33.5 (32-36) g/dL RDW Std Deviation 47.9 H (36.4-46.3) fL RDW Coeff of Sim 13.2 (11.5-14.5) % Plt Count 274 (130-400) K/uL MPV 11.9 H (7.4-10.4) fL Immature Gran % (Auto) 0.3 % Neut % (Auto) 76.2 % Lymph % (Auto) 14.6 % [place] % (Auto) 8.1 % Eos % (Auto) 0.4 % Baso % (Auto) 0.4 % Neut # (Auto) 11.07 H (1.4-6.5) K/uL Lymph # (Auto) 2.12 (1.2-3.4) K/uL [place] # (Auto) 1.18 H (0.11-0.59) K/uL Eos # (Auto) 0.06 (0-0.5) K/uL Baso # (Auto) 0.06 (0-0.2) K/uL Immature Gran # (Auto) 0.04 H (0.00-0.02) K/uL Echinocytes 1+ ESR 22 (0-30) mm/hr Sodium (136-145) mmol/L Potassium (3.5-5.1) mmol/L Chloride (98-107) mmol/L Carbon Dioxide (21-32) mmol/L Anion Gap (3-11) BUN (6-23) mg/dl Creatinine (0.6-1.2) mg/dl Est Cr Clr Drug Dosing ml/min Est GFR ( Amer) ml/min Est GFR (Non-Af Amer) ml/min BUN/Creatinine Ratio (10-20) Glucose (70-99(Fasting)) mg/dl Calcium (8.5-10.1) mg/dl Magnesium (1.7-2.4) mg/dl Total Bilirubin (0.2-1.0) mg/dl AST (13-39) U/L ALT (7-52) U/L Alkaline Phosphatase (34-104) U/L Troponin I High Sens (0-14) pg/ml C-Reactive Protein (0-0.5) mg/dl Total Protein (6.0-8.3) gm/dl Albumin (3.4-5.0) gm/dl Globulin (2.5-4.0) gm/dl Albumin/Globulin Ratio (0.9-2) TSH (0.300-4.500) uIu/ml Free T4 (0.61-1.60) ng/dl Anaplasma Smear See Comment Babesia Smear See Comment Lyme Disease IgG Ab Negative (Negative) Lyme Disease IgM Ab Negative (Negative) SARS-CoV-2, RNA, NAAT (NEGATIVE) 07/25/21 07/25/21 07/25/21 Range/Units 13:35 13:35 13:35 WBC (4.8-10.8) K/uL RBC (4.2-5.4) M/uL Hgb (12.0-16.0) g/dL Hct (37-47) % MCV (80-100) fL MCH (25-34) pg MCHC (32-36) g/dL RDW Std Deviation (36.4-46.3) fL RDW Coeff of Sim (11.5-14.5) % Plt Count (130-400) K/uL MPV (7.4-10.4) fL Immature Gran % (Auto) % Neut % (Auto) % Lymph % (Auto) % [place] % (Auto) % Eos % (Auto) % Baso % (Auto) % Neut # (Auto) (1.4-6.5) K/uL Lymph # (Auto) (1.2-3.4) K/uL [place] # (Auto) (0.11-0.59) K/uL Eos # (Auto) (0-0.5) K/uL Baso # (Auto) (0-0.2) K/uL Immature Gran # (Auto) (0.00-0.02) K/uL Echinocytes ESR (0-30) mm/hr Sodium 137 (136-145) mmol/L Potassium 3.7 (3.5-5.1) mmol/L Chloride 102 (98-107) mmol/L Carbon Dioxide 24 (21-32) mmol/L Anion Gap 11 (3-11) BUN 13 (6-23) mg/dl Creatinine 0.86 (0.6-1.2) mg/dl Est Cr Clr Drug Dosing 59.2 ml/min Est GFR ( Amer) 80.5 ml/min Est GFR (Non-Af Amer) 69.4 ml/min BUN/Creatinine Ratio 15.1 (10-20) Glucose 117 H (70-99(Fasting)) mg/dl Calcium 9.8 (8.5-10.1) mg/dl Magnesium 1.9 (1.7-2.4) mg/dl Total Bilirubin 0.6 (0.2-1.0) mg/dl AST 14 (13-39) U/L ALT 27 (7-52) U/L Alkaline Phosphatase 57 (34-104) U/L Troponin I High Sens 9.2 D (0-14) pg/ml C-Reactive Protein < 0.50 (0-0.5) mg/dl Total Protein 7.8 (6.0-8.3) gm/dl Albumin 4.6 (3.4-5.0) gm/dl Globulin 3.2 (2.5-4.0) gm/dl Albumin/Globulin Ratio 1.4 (0.9-2) TSH 5.271 H (0.300-4.500) uIu/ml Free T4 1.03 (0.61-1.60) ng/dl Anaplasma Smear Babesia Smear Lyme Disease IgG Ab (Negative) Lyme Disease IgM Ab (Negative) SARS-CoV-2, RNA, NAAT (NEGATIVE) 07/25/21 Range/Units 15:10 WBC (4.8-10.8) K/uL RBC (4.2-5.4) M/uL Hgb (12.0-16.0) g/dL Hct (37-47) % MCV (80-100) fL MCH (25-34) pg MCHC (32-36) g/dL RDW Std Deviation (36.4-46.3) fL RDW Coeff of Sim (11.5-14.5) % Plt Count (130-400) K/uL MPV (7.4-10.4) fL Immature Gran % (Auto) % Neut % (Auto) % Lymph % (Auto) % [place] % (Auto) % Eos % (Auto) % Baso % (Auto) % Neut # (Auto) (1.4-6.5) K/uL Lymph # (Auto) (1.2-3.4) K/uL [place] # (Auto) (0.11-0.59) K/uL Eos # (Auto) (0-0.5) K/uL Baso # (Auto) (0-0.2) K/uL Immature Gran # (Auto) (0.00-0.02) K/uL Echinocytes ESR (0-30) mm/hr Sodium (136-145) mmol/L Potassium (3.5-5.1) mmol/L Chloride (98-107) mmol/L Carbon Dioxide (21-32) mmol/L Anion Gap (3-11) BUN (6-23) mg/dl Creatinine (0.6-1.2) mg/dl Est Cr Clr Drug Dosing ml/min Est GFR ( Amer) ml/min Est GFR (Non-Af Amer) ml/min BUN/Creatinine Ratio (10-20) Glucose (70-99(Fasting)) mg/dl Calcium (8.5-10.1) mg/dl Magnesium (1.7-2.4) mg/dl Total Bilirubin (0.2-1.0) mg/dl AST (13-39) U/L ALT (7-52) U/L Alkaline Phosphatase (34-104) U/L Troponin I High Sens (0-14) pg/ml C-Reactive Protein (0-0.5) mg/dl Total Protein (6.0-8.3) gm/dl Albumin (3.4-5.0) gm/dl Globulin (2.5-4.0) gm/dl Albumin/Globulin Ratio (0.9-2) TSH (0.300-4.500) uIu/ml Free T4 (0.61-1.60) ng/dl Anaplasma Smear Babesia Smear Lyme Disease IgG Ab (Negative) Lyme Disease IgM Ab (Negative) SARS-CoV-2, RNA, NAAT NEGATIVE (NEGATIVE) Administered Medications Methylprednisolone 40 mg/ (Syringe) 0.64 mls @ 1.5 mls/min IV Q12H GRANT Stop: 08/24/21 20:14 Last Admin: 07/25/21 20:47 Dose: 1.5 mls/min Documented by: [id number] Loratadine (Loratadine 10 Mg Tab) 10 mg PO QAM GRANT Stop: 08/24/21 19:34 Last Admin: 07/25/21 20:47 Dose: 10 mg Documented by: [id number] Simvastatin (Simvastatin 10 Mg Tab) 10 mg PO HS GRANT Stop: 08/24/21 20:59 Last Admin: 07/25/21 20:48 Dose: 10 mg Documented by: [id number] Discontinued Medications Sodium Chloride (Nss 1000ml) 1,000 mls @ 999 mls/hr IV .Q1H1M ONE Stop: 07/25/21 15:35 Last Infusion: 07/25/21 15:51 Dose: 0 mls/hr Documented by: [id number] Admin: 07/25/21 14:43 Dose: 999 mls/hr Documented by: [id number] Digoxin 250 mcg/ Syringe 10 mls @ 2 mls/min IV ONE ONE Stop: 07/25/21 19:39 Last Admin: 07/25/21 20:14 Dose: 2 mls/min Documented by: [id number] Imaging Data Radiologist's Impression: Chest X-Ray 07/25/21 14:36 XR chest 1V portable CLINICAL HISTORY: Atypical chest pain TECHNIQUE: Single frontal radiograph of the chest was obtained. Comparison: Comparison is made to chest radiograph 07/24/2021 FINDINGS: No lines and tubes are seen. Cardiomegaly is noted. The lungs are clear. No evidence of pleural effusion or pneumothorax. IMPRESSION: No acute chest disease. ACT 112: Negative or not required by law. Electronically signed by: Sudeep Lou M.D. 07/25/2021 3:35 PM Discharge Plan Visit Data Chief Complaint: Arrhythmia/Palpitations Stated Complaint: RASH,AFIB Discharge Problem: Rash, Paroxysmal atrial fibrillation with RVR, On rivaroxaban therapy Patient Disposition: Admitted As Inpatient Discharge Instructions Interventions: ED Discharge Assessment Last Done: 07/25/21 19:12
[2021-07-25] MEDS ORDERED: ACETAMINOPHEN 325 MG TAB PO PRN (19:35)
[2021-07-25] MEDS ORDERED: ALPRAZolam 0.25 MG TABLET PO PRN (19:35)
[2021-07-25] MEDS ORDERED: DIGOXIN 250 MCG in SYRINGE 9 ML IV ONE (19:35)
[2021-07-25] MEDS ORDERED: POLYETHYLENE (MIRALAX) 17 GM PACK PO PRN (19:35)
[2021-07-25] MEDS ORDERED: ONDANSETRON INJ 2 MG/ML 2 ML VIAL IV PRN (19:35)
[2021-07-25] MEDS ORDERED: CLOBETASOL PROPIONATE 0.05% OINT 15 GM TUBE EXT PRN (20:21)
[2021-07-25] MEDS: methylPREDNISolone 40 MG in SYRINGE 0 ML IV SCH (20:47)
[2021-07-25] MEDS: LORATADINE 10 MG TAB PO SCH (20:47)
[2021-07-25] MEDS: SIMVASTATIN 10 MG TAB PO SCH (20:48)
[2021-07-25] MEDS ORDERED: SIMVASTATIN 40 MG TAB PO SCH (21:00)
[2021-07-26] MEDS: LEVOTHYROXINE SODIUM 50 MCG TABLET PO SCH (06:02)
[2021-07-26] MEDS: dilTIAZem HCL 180 MG CAPCR PO SCH (06:38)
[2021-07-26] MEDS ORDERED: DIGOXIN 250 MCG in SYRINGE 9 ML IV STA (08:23)
[2021-07-26] MEDS: LORATADINE 10 MG TAB PO SCH (08:24)
[2021-07-26] MEDS: methylPREDNISolone 40 MG in SYRINGE 0 ML IV SCH ×2 (08:24→20:24)
[2021-07-26] MEDS: RIVAROXABAN 20 MG TAB PO SCH (08:24)
[2021-07-26] MEDS ORDERED: METOPROLOL TARTRATE 1 MG/ML VIAL IV STA (08:32)
[2021-07-26] MEDS ORDERED: hydrOXYzine HCl 25 MG TAB PO STA (08:35)
--- NOTE | 2021-07-26 08:36 | Hospitalist Progress Note ---
Date of Service July 26, 2021 Assessment & Plan (1) Atrial fibrillation with rapid ventricular response: Plan: - Admitted in A. fib with RVR, HR 80s to 150s. Asymptomatic. - Potassium 3.7, will give p.o. x1 with goal potassium 4 Magnesium 1.9 - TSH 5.271, free T4 within normal limits Paroxysmal, patient does not always know when she is in A. fib. Follows with Evaristo Ortez and was recently prescribed diltiazem daily and metoprolol as needed. 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 Has not taken the metoprolol since then. Continue Xarelto, diltiazem Patient returned to RVR [id number] morning of 07/26. Received p.o. dose of Cardizem early with no improvement in rate. Normal renal function, had been avoiding beta-blockers. Given contact pattern of rash, with good tolerance to metoprolol in the past even though she was not using this daily have a low suspicion that her rash is actually due to metoprolol allergy. Trialed Lopressor IV, if concern for worsening allergy or treatment of oral allergy discontinue and can consider dig load versus amnio for rate control. Is on Solu-Medrol every 12. Hydroxyzine added for itching/cutaneous efficacy. Following 1 dose of Lopressor and oral metoprolol heart rate has quickly down trended to 70s. - Echo in October 2019: EF 60 to 65% with mild to moderate mitral regurg. No wall motion abnormalities, no LVH, no diastolic dysfunction. (2) Rash: Plan: - Has developed 4 days after starting Toprol, with progression across the with sparing of mucosal membranes. Otherwise, no new medications, body washes, detergents. Patient does states she was at a greenhouse carrying several plants in her arms the day after the rash initially started, at which time it was confined to his left elbow. Lyme/Babesia/anaplasmosis initial testing negative Outpatient prednisone taper without significant clinical improvement No fever/chills. No leukocytosis. Not consistent with cellulitis, no other infectious symptoms Has a exposure like spread with most prominent on chest/upper back/arms and presence but reduction in legs/abdomen. Does not have streaking or vesicles, spares the face, bilateral - Has been on prednisone taper without alleviation. -Continued on Solu-Medrol every 12 hours, hydroxyzine added, cetirizine continued - Consult Jay, with allergy/immunology. CBC/BMP pending, follow clinical progression while managing RVR as above (3) Hyperlipidemia: Plan: - Continue simvastatin 40 mg HS. (4) Hypothyroidism: Plan: - Continue levothyroxine 50 mcg daily. (5) Anxiety: Plan: - Continue alprazolam as needed. Plan: - Admit to PCU. - ARASHsElicia for VTE ppx. - Full Code. Admission and Anticipated Discharge Date Admission Date: July 25, 2021 Christoph Nieves seen at the bedside this morning. Does not feel her A. fib, rates were in the 1 30-1 50s. On discussion she reports she has taken metoprolol intermittently in the past without any problem. She reports her rash did pop up several days after starting metoprolol daily, but had not changed formulation of this. Does take a long-acting succinate formulation. He does garden daily, note she did move a lot of plants from the store but this was a day after the rash had started although she had done her normal gardening. Rash is most prominent on her upper extremities, scattered papules on the knees bilaterally and trace papules on the dorsum of the foot bilaterally. Some rash on her chest and back and scattered few on abdomen. Rash was initially itchy and started the left elbow prior to spreading, is minimally itchy to her at time of assessment. No vesicles. Denies chest pain, chest pressure, shortness of breath, difficulty breathing, lightheadedness, dizziness, fever, chills, sweats. No nausea/vomiting. No foreign injuries. Physical Exam Physical Exam: General: A&Ox3. NAD. Cooperative. HEENT: Atraumatic, normocephalic. Vision and hearing grossly intact Pulm: CTAB A&P. -wheezes, -rales, -rhonchi. Symmetrical chest rise. No increase in work of breathing. No respiratory distress. Cardiac: Irregular, tachycardic -mrg. Radial pulses intact and symmetrical. Abdominal: Nontender, nondistended, soft. BS present. Ext: Scattered maculopapular and erythematous rash is most prominent on her upper extremities near the elbows, scattered papules on the knees bilaterally and trace papules on the dorsum of the foot bilaterally. Some rash on her chest and back and scattered few on abdomen. Rash was initially itchy and started the left elbow prior to spreading, is minimally itchy to her at time of assessment. No vesicles. Results & Data Results & Data ([facility]) Vital Signs (Past 12 Hours) Vital Signs Temp Pulse Pulse Resp BP Pulse Ox 07/26/21 07:46 36.7 C 88 18 115/74 94 07/26/21 06:33 135 H 111/73 07/26/21 03:07 106 H 07/26/21 02:55 36.6 C 123 H 18 109/74 95 07/25/21 23:00 90 07/25/21 22:58 36.4 C L 96 H 18 103/65 92 PG Care Time/CCT Total # of Minutes Spent Total Time Spent with Patient: Total time spent is greater than 50% in coordination of care (as documented) at patient's floor/unit and/or counseling patient: Coding Level of Care Code 42675 Subseq Hosp Care Lvl 2 Diagnoses Rash R21 Atrial fibrillation with rapid ventricular response I48.91 Hyperlipidemia E78.5 Hypothyroidism E03.9 Anxiety F41.9
[2021-07-26] MEDS: METOPROLOL TARTRATE 25 MG TAB PO SCH ×2 (11:31→20:26)
--- NOTE | 2021-07-26 12:21 | Electrocardiogram Report ---
Test Reason : Blood Pressure : / mmHG Vent. Rate : 106 BPM Atrial Rate : 170 BPM P-R Int : 000 ms QRS Dur : 078 ms QT Int : 320 ms P-R-T Axes : 000 -55 039 degrees QTc Int : 425 ms Poor data quality, interpretation may be adversely affected Atrial fibrillation with rapid ventricular response Left anterior fascicular block Abnormal ECG When compared with ECG of 24-JUL-2021 13:10, Nonspecific T wave abnormality no longer evident in Inferior leads Confirmed by Reji Bonilla ([id number]) on 07/26/2021 12:21:08 PM Referred By: REFERRED SELF Confirmed By:Anthony Bonilla
[2021-07-26] MEDS ORDERED: hydrOXYzine HCl 10 MG TAB PO STA (18:35)
[2021-07-26] MEDS: SIMVASTATIN 10 MG TAB PO SCH (20:26)
[2021-07-26] MEDS ORDERED: MELATONIN 3 MG TAB PO PRN (21:07)
--- NOTE | 2021-07-26 23:56 | Allergy & Immunology Consult ---
Date of Consultation July 26, 2021 Assessment & Plan (1) Rash: Patient presents with a rash of unclear etiology. Based on the extremely low allergenic potential metoprolol, and the nature of this rash which is well demarcated areas that were not covered by her T-shirt. At this point, based on the distribution it is most consistent with a contact dermatitis, either irritant or allergic. What is unusual, however is that she has not responded well to high doses of corticosteroids. She does think that the rash today may be slightly better than it was yesterday and right now it is not very pruritic. Blood testing so far has been negative for Lyme disease, negative Anaplasma smear, negative Babesia smear. The only other abnormality is a left shift, which would be consistent with high doses of prednisone. At this point, she is comfortable and all of her blood markers are negative. She is comfortable and not very itchy on the current regimen. I believe that the next step in work-up can be performed as an outpatient. If the rash fails to resolve with prednisone, then we should consider biopsying it. However I believe that the most useful next step will be to perform patch testing to try to identify a possible contact allergen. This will need to be done off of prednisone for at least 2 weeks. At this point, I would continue on a good dose of prednisone, around 60 mg, for another 5 days and then taper by 10 mg every 3 days thereafter. I will arrange for close follow-up in my clinic within the next couple days and will also see her again a week later to document her progress. Regarding metoprolol, this can be continued and at this point seems to be effective in controlling her heart rate. History of Present Illness Reason for Consultation: rash Attending Physician: Justin Ferraro MD History of Present Illness 70 year old female with a history of afib, rash that presented to ER over the weekend with a 4 day history of a rash. She was started on metoprolol 4 days before the rash started. She had been on metoprolol in the past that she was recently on an as-needed basis for tachycardia without any problems. The rash started on her left elbow and then spread to arms, torso, feet. She also had exposure to plants on the day of the rash. She was at a gardening center and bottom number of plants. She noted that she got a scratch on the left elbow area and this might of been the first place that she noticed redness. Right now, the legs are not really involved, just a few mild spots. She denies any significant itching, but has been on hydroxyzine. There are no other new medicines or [id number]-emy-[id number] medications. Blood work not remarkable for eosinophilia or other abnormalities. She was started in prednisone as outpatient, but it was not helping. She is being treated with solumedrol 40 mg q 12. Allergies Allergy/AdvReac Type Severity Reaction Status Date / Time No Known Allergies Allergy Verified 07/25/21 16:33 Home Medications Medication Instructions Recorded Confirmed Type rivaroxaban 20 mg tablet (Xarelto) 20 mg PO DAILY #30 tab 03/05/20 07/25/21 Rx clobetasol 0.05 % topical ointment See Rx Instructions TOPICAL 03/27/21 07/25/21 Rx .COMPLEX PRN #45 gm conjugated estrogens 0.625 mg/gram 0.3125 mg PV 2XWK #30 g 03/27/21 07/25/21 Rx vaginal cream levothyroxine 50 mcg tablet 50 mcg PO QAM #90 tab 04/06/21 07/25/21 Rx simvastatin 40 mg tablet 40 mg PO HS #90 tab 04/06/21 07/25/21 Rx calcium 250 mg-D3 400 1 tab PO DAILY tab 05/26/21 07/22/21 History unit-magnesium 40 oq-Q0-Fj-copper-bartolome tablet alprazolam 0.5 mg tablet 0.25 - 0.5 mg PO DAILY PRN #30 tab 06/09/21 07/25/21 Rx diltiazem HCl 360 mg 360 mg PO DAILY #21 cap 07/24/21 07/25/21 Rx capsule,extended release 24 hr (Cardizem CD) estradiol 1 g VAGINAL .2-3XWK 07/25/21 07/25/21 History Patient History Medical History Anxiety Hyperlipidemia Hypothyroidism Osteoarthritis Paroxysmal A-fib Surgical History History of partial knee replacement right History of tonsillectomy History of tubal ligation History of wisdom tooth extraction Family History Grandmother Breast cancer Father Myocardial infarction Emphysema/COPD Mother Liver cancer Type C viral hepatitis Sister Thyroid disease Ovarian cancer Hemochromatosis Dane-Danlos disease Breast cancer Denies family history of Prostate cancer Colorectal cancer Social History Smoking Status: Never smoker Second Hand Exposure: No; Hx Alcohol Use: Yes Alcohol type: wine Alcohol Intake Frequency: 2-3 x/Week Hx Substance Use: No Preferred Language: [place] Communication Ability: Effective Visual Impairment: No Limitations Hearing Ability: Normal Linen Controller Required: No Beliefs That Will Affect Care: None marital status: Current Living Situation: Spouse current occupational status: retired 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; 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 How many Children do You have: 3 Other Information That Helps Us Care for You: No Feels Safe at Home: Yes Safety Concerns: Feels Safe At This Time Childhood Exposure to Second-Hand Smoke: Yes caffeine: Yes during the past year weight has: remained stable Dental Care, Regularly: Yes Physical Activity Frequency: 5-6 Times per Week Seatbelt Use: always Sunscreen Use: Yes Assistive Devices: Glasses Review of Systems Constitutional: as per Subjective / HPI Eyes: as per Subjective / HPI Ear, Nose, Mouth, Throat: as per Subjective / HPI Respiratory: as per Subjective / HPI Cardiovascular: as per Subjective / HPI Gastrointestinal: as per Subjective / HPI Genitourinary: as per Subjective / HPI Musculoskeletal: as per Subjective / HPI Integumentary: as per Subjective / HPI Neurologic: as per Subjective / HPI Psychiatric: as per Subjective / HPI Endocrine: as per Subjective / HPI Hematologic / Lymphatic: as per Subjective / HPI Allergy / Immunological: as per Subjective / HPI Physical Exam Constitutional: WD/WN, vitals as above Eyes: no conjunctival abnormality and sclerae not anicteric ENMT: external ear and nose normal, oropharynx normal Neck: trachea midline Respiratory: normal respiratory effort and able to speak in complete sentences; does not use accessory muscles Musculoskeletal: Head/Neck/Chest: head atraumatic Gait: normal gait Skin: + rash; no lesions The rash is primarily on the arms and chest. It is well demarcated and stops where her T-shirt was covering the skin. It is also on the upper chest and a V-shaped pattern, again sparing the area that was covered by her t-shirt. The rash is erythematous, maculopapular and some areas, macular and others. It is nonblanching. Psychiatric: A+Ox3, euthymic affect Results & Data ([facility]) Vital Signs (Past 12 Hours) Vital Signs Temp Pulse Pulse Pulse Resp BP Pulse Ox 07/26/21 20:23 113/71 07/26/21 19:35 36.7 C 74 18 96/61 L 92 07/26/21 16:01 119 H 07/26/21 15:27 36.6 C 70 18 102/65 96 Pulse Ox 07/26/21 20:23 07/26/21 19:35 92 07/26/21 16:01 07/26/21 15:27 Coding Level of Care Code 81561 Initial Inpt Care Lvl 2 Diagnoses Rash R21
[2021-07-27] MEDS: LEVOTHYROXINE SODIUM 50 MCG TABLET PO SCH (05:46)
[2021-07-27 07:36] LABS: BUN Creatinine Ratio 23.6 (10-20); Calcium 9.3 mg/dl (8.5-10.1); Creatinine Clr Calc Pharmacy 70.4 ml/min; Est GFR (African American) 99.7 ml/min; Est GFR (Non-African American) 86.1 ml/min; Potassium 4.1 mmol/L (3.5-5.1)
[2021-07-27 07:42] LABS: Hemoglobin 14.6 g/dL (12.0-16.0); Immature Granulocytes # (auto) 0.04 K/uL (0.00-0.02); Immature Granulocytes % (auto) 0.3 %; Lymphocytes # (auto) 0.61 K/uL (1.2-3.4); Lymphocytes % (auto) 3.9 %; Mean Corpuscular Hemoglobin 32.1 pg (25-34); Mean Corpuscular Hgb Conc 33.2 g/dL (32-36); Mean Corpuscular Volume 96.7 fL (80-100); Mean Platelet Volume 11.4 fL (7.4-10.4); Monocytes # (auto) 0.33 K/uL (0.11-0.59); Monocytes % (auto) 2.1 %; Neutrophils # (auto) 14.53 K/uL (1.4-6.5); Neutrophils % (auto) 93.7 %; Platelet Count 263 K/uL (130-400); RDW Coefficient of Variation 13.2 % (11.5-14.5); RDW Standard Deviation 46.7 fL (36.4-46.3); Red Blood Count 4.55 M/uL (4.2-5.4); White Blood Count 15.51 K/uL (4.8-10.8)
[2021-07-27] MEDS: methylPREDNISolone 40 MG in SYRINGE 0 ML IV SCH (08:12)
[2021-07-27] MEDS: LORATADINE 10 MG TAB PO SCH (08:13)
[2021-07-27] MEDS: RIVAROXABAN 20 MG TAB PO SCH (08:13)
[2021-07-27] MEDS: dilTIAZem HCL 180 MG CAPCR PO SCH (08:13)
[2021-07-27] MEDS: METOPROLOL TARTRATE 25 MG TAB PO SCH (08:13)
[2021-07-27 08:48] LABS: Cholesterol 192 mg/dl (0-200); HDL Cholesterol 63 mg/dl; LDL Cholesterol Direct 114 mg/dl
[2021-07-27] MEDS ORDERED: hydrOXYzine HCl 10 MG TAB PO SCH (09:00)
[2021-07-27] MEDS ORDERED: FAMOTIDINE 20 MG TAB PO SCH (09:00)
--- NOTE | 2021-07-27 11:04 | Discharge Summary ---
Date of Service July 27, 2021 Admission HPI Per Admitting Provider Lizbeth Carvalho is a 70 y/io F with PMH afib on Xarelto, HTN, HLD, hypothyroidism, and anxiety who presents to the ED today for evaluation of a progressive rash. Earlier this week, patient developed initially started on left elbow, has since spread to bilateral arms, chest, abdomen and upper lip. She was seen by her PCP on 07/22 and was prescribed a prednisone taper for this. Despite this, she become worse. She now has evidence of it on her bilateral legs, and her lips feel chapped, although she has not noticed any changes to her oral medications. Of note, recently started on metoprolol 4 days prior to this, but has since stopped it because she is concerned this may be causing the rash. Also reports she had been carrying several plants in her arms, right around when the rash started. No new detergents, new body washes. Has never had an allergic reaction like this, no allergies reported. She has no chest pain, palpitations difficulty breathing, difficulty swallowing, fever/chills. In ED, he is in A. fib RVR and her HR fluctuates between 80s-150s, otherwise VS within normal limits and stable. Labs significant for WBC 14.53, ESR and CRP not elevated. Negative serologies for anaplasmosis, Babesia, Lyme disease. Principal Diagnosis Contact dermatitis Discharge Exam General: A&Ox3. NAD. Cooperative. HEENT: Atraumatic, normocephalic. Vision and hearing grossly intact Pulm: CTAB A&P. -wheezes, -rales, -rhonchi. Symmetrical chest rise. No increase in work of breathing. No respiratory distress. Cardiac: irregular, regular rate -mrg. Radial pulses intact and symmetrical. Abdominal: Nontender, nondistended, soft. BS present. Ext: Scattered maculopapular and erythematous rash is most prominent on her upper extremities near the elbows, scattered papules on the knees bilaterally and trace papules on the dorsum of the foot bilaterally. Some rash on her chest and back with reduction below shirt line and scattered few on abdomen. Discharge Data Allergies Allergy/AdvReac Type Severity Reaction Status Date / Time No Known Allergies Allergy Verified 07/25/21 16:33 Consultations 07/25/21 15:48 ED Decision to Admit Stat 07/25/21 19:35 Consult Allergy / Immunology Routine Hospital Course (1) Atrial fibrillation with rapid ventricular response: Lizbeth is a 70-year-old female with a history of A. fib with RVR who presented with a maculopapular rash most prominent on the bilateral upper extremities but also present on the chest, back, legs, and feet and he was in A. fib with RVR. She had recently started metoprolol daily after taking intermittently prior to her rash and was concerned it could be a drug reaction and stopped taking this prior to admission. On review her rash appears more consistent with a contact dermatitis and being that she had tolerated metoprolol well intermittently previously low suspicion was had for a true metoprolol allergy. She received Lopressor and then was started back on metoprolol with return to normal heart rates and good control. She was placed on IV steroids, Claritin, and hydroxyzine for her rash and had gradual but slow improvement. Allergy was consulted, agree that rash is consistent with a contact dermatitis either irritant or allergic. Steroid taper was prescribed as below with follow- up to their office as an outpatient. To do as outpatient: 1. Continue metoprolol 25 mg succinate in the morning for rate control, patient also on diltiazem with good blood pressure tolerance MEDIA JOB TITLES. In afib rates 80s at dc. 2. Complete steroid taper. Prednisone 60 mg for 5 days and then decrease by 10 mg every 3 days. 3. Continue cetirizine 10 mg daily and hydroxyzine 10 mg daily with follow-up to PCP/allergy 4. If rash does not improve with steroids will require biopsy for further evaluation as outpatient. If rash does improve anticipate skin scratch testing with allergy once off steroids. - Admitted in A. fib with RVR, HR 80s to 150s. Asymptomatic. - Potassium 3.7, will give p.o. x1 with goal potassium 4 Magnesium 1.9 - TSH 5.271, free T4 within normal limits Paroxysmal, patient does not always know when she is in A. fib. Follows with Evaristo Ortez and was recently prescribed diltiazem daily and metoprolol as needed. 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 Has not taken the metoprolol since then. Continue Xarelto, diltiazem Patient returned to RVR [id number] morning of 07/26. Received p.o. dose of Cardizem early with no improvement in rate. Normal renal function, had been avoiding beta-blockers. Given contact pattern of rash, with good tolerance to metoprolol in the past even though she was not using this daily have a low suspicion that her rash is actually due to metoprolol allergy. Given Lopressor IV and then metoprolol resumed with good rate control. - Echo in October 2019: EF 60 to 65% with mild to moderate mitral regurg. No wall motion abnormalities, no LVH, no diastolic dysfunction. (2) Rash: - Has developed 4 days after starting Toprol, with progression across the with sparing of mucosal membranes. Otherwise, no new medications, body washes, detergents. Patient does states she was at a greenhouse carrying several plants in her arms the day after the rash initially started, at which time it was confined to his left elbow. Lyme/Babesia/anaplasmosis initial testing negative Outpatient prednisone taper without significant clinical improvement No fever/chills. No leukocytosis. Not consistent with cellulitis, no other infectious symptoms Has a exposure like spread with most prominent on chest/upper back/arms and presence but reduction in legs/abdomen. Does not have streaking or vesicles, spares the face, bilateral - Has been on prednisone taper without alleviation. -Continued on Solu-Medrol every 12 hours, hydroxyzine added, cetirizine continued -Allergy and immunology consulted. Suspect contact dermatitis. Steroids as above with outpatient follow-up as above (3) Hyperlipidemia: - Continue simvastatin 40 mg HS. (4) Hypothyroidism: - Continue levothyroxine 50 mcg daily. (5) Anxiety: - Continue alprazolam as needed. - Admit to PCU. - SCDs, Elicia for VTE ppx. - Full Code. Total Time Total Time Spent Total Time Spent (In Minutes): Time spend day of discharge 40 minutes including direct patient care, documentation, review of labs and images, and coordination of care. Discharge Plan Discharge Items Patient Disposition: Home - Self-Care Reason For Visit: WORSENING RASH UNKNOWN ETIOLOGY Discharge Diagnosis: Rash, suspected contact dermatitis Activity: Resume your previous activity Non-emergency contact: Primary Care Provider and Specialist Call non-emergency contact if: you have any medication questions and your symptoms worsen Follow-up/Referrals: Christina Ozuna MD [Primary Care Provider] - Iraida Thompson MD [Physician] - Diet: Regular Addtl Attending Provider Instructions: You are seen in the hospital for a rash most prominent on your upper extremities, but including your chest, back, legs, and feet. It is unlikely that this rash was related to your metoprolol. It does appear consistent with a contact dermatitis, but with slow improvement to steroids. Your blood tests were negative for Lyme, anaplasmosis, and Babesia. You did have an elevated white blood cell count during admission, this can be caused by steroid medications which you were given to treat your rash. You have been prescribed a steroid, prednisone. Please take prednisone once daily as follows: - Prednisone 60 mg once daily for 5 days then Prednisone 50 mg once daily for 3 days then Prednisone 40 mg once daily for 3 days then Prednisone 30 mg once daily for 3 days then Prednisone 20 mg once daily for 3 days then Prednisone 10 mg once daily for 3 days then stop taking prednisone Follow-up is being arranged with outpatient allergy/immunology for further evaluation and testing. You may continue to take hydroxyzine 10 mg twice daily by mouth for itching. This medication may make you sleepy, please do not drive while on this medication. You may continue to take daily a daily allergy pill, Claritin. Please take Claritin (loratadine) 10 mg by mouth daily. This is available [id number]. Your atrial fibrillation was well controlled once metoprolol was resumed. You may continue to take your diltiazem 360 mg daily and metoprolol succinate 25 mg p.o. daily for A. fib rate control. A refill of metoprolol succinate has been sent to the pharmacy for you. A follow-up appointment is being scheduled for you with both your primary care provider and the physician advisor as above. You should receive a call within 48 hours to confirm your appointments. If you do not please call the providers offices at the number above. You should be seen by your PCP within 1 week, and by the physician advisor within the next 1 to 2 weeks. If your rash does not improve you may require an outpatient biopsy to further evaluate the cause. If you develop any new or worsening symptoms including fever, chills, sweats, chest pain, chest pressure, difficulty breathing, uncontrolled nausea/vomiting, rash, wheezing, passing out or nearly passing out, bleeding, black/bloody bowel movements, or other new or concerning symptoms please call your primary care physician, or call 911 for re-evaluation in the emergency department if you are very concerned. Pending Studies at Discharge: No Stand-Alone Forms: My [facility], Smoking Cessation Medications and DC Order Prescriptions: New hydroxyzine HCl 10 mg Tablet 10 mg PO Q12H Qty: 28 RF: 0 prednisone 20 mg tablet See Rx Instructions .ROUTE .COMPLEX Qty: 38 RF: 0 metoprolol succinate 25 mg tablet extended release 24 hr 25 mg PO DAILY Qty: 30 RF: 0 Continued Xarelto 20 mg tablet 20 mg PO DAILY Qty: 30 RF: 0 simvastatin 40 mg tablet 40 mg PO HS Qty: 90 RF: 1 levothyroxine 50 mcg tablet 50 mcg PO QAM Qty: 90 RF: 1 alprazolam 0.5 mg tablet 0.25 - 0.5 mg PO DAILY PRN (Reason: Anxiety) Qty: 30 RF: 2 [id number]-[id number]-zyjmzd-L7-Qo-Xy-bartolome 250 mg-400 unit -40 mg-5 mg tablet 1 tab PO DAILY RF: 0 clobetasol 0.05 % ointment See Rx Instructions topical .COMPLEX PRN (Reason: itching) Qty: 45 RF: 1 conjugated estrogens 0.625 mg/gram cream 0.3125 mg PV 2XWK Qty: 30 RF: 3 estradiol 0.01 % (0.1 mg/gram) cream 1 g vaginal .2-3XWK RF: 0 diltiazem HCl [Cardizem CD] 360 mg capsule,extended release 24hr 360 mg PO DAILY Qty: 21 RF: 0 Discharge Orders: Discharge Order (Routine); Ordered 07/27/21 Ordered By: Justin Ferraro Admission Data Admit Date/Time: 07/25/21 15:54 Attending Provider: Justin Ferraro Admit Provider: Kevin Connolly Primary Care Provider: Christina Ozuna Other Providers: Kevin Connolly ; Iraida Thompson Coding Level of Care Code D/C DAY MANAGEMENT >30 MINS Diagnoses Atrial fibrillation with rapid ventricular response I48.91 Rash R21 Hyperlipidemia E78.5 Hypothyroidism E03.9 Anxiety F41.9
[2021-07-27] MEDS ORDERED: predniSONE 20 MG TAB PO STA (11:22)
[2021-07-29 23:13] LABS: Babesia microti DNA Not Detected (Not Detected)
[2021-08-07 15:07] LABS: Ehrlichia chaff DNA Bld Negative (Negative)
== END 2021-07-27 13:00 | disposition home or self-care (01) | DRG 310 ==
LOC: ED 13:16 → SUATTDRO 15:54 → 2S 15:54